=== PATIENT | male | born 1995 | race Caucasian/White ===

== ENCOUNTER 2017-12-25 15:49 | Emergency (ER) | payer BC ==
--- NOTE | 2017-12-25 16:13 | EDM.PDOC ---
ED HPI GENERAL MEDICAL PROBLEM - General Chief Complaint: General Time Seen by Provider: 12/25/17 15:50 Source of Information: Reports: Patient History Limitations: Reports: No Limitations - History of Present Illness INITIAL COMMENTS - FREE TEXT/NARRATIVE: Pt. states that he got the sherrell of a treble hook stuck in his R thumb. He states that his tetanus is UTD. Denies any other injury. Location: Reports: Upper Extremity, Right Right 1-Thumb Pain Score (Numeric/FACES): 6 - Related Data Allergies Allergy/AdvReac Type Severity Reaction Status Date / Time No Known Allergies Allergy Verified 12/25/17 16:01 Past Medical History - Past Health History Medical/Surgical History: Denies Medical/Surgical History Social & Family History - Tobacco Use Smoking Status *Q: Never Smoker - Recreational Drug Use Recreational Drug Use: No ED ROS GENERAL - Review of Systems Review Of Systems: ROS reveals no pertinent complaints other than HPI. ED EXAM, GENERAL - Physical Exam Exam: See Below Extremities: Other (barbed treble fish hook is in his R distal portion of his thumb. CMS intact.) ED GENERAL MEDICAL PROCEDURES - Additional/Other Procedure(s) Other (Free Text) Procedure(s): 1% lidocaine was injected into area of hook. The hook was easily removed by pulling it directly back with Fiorella forceps. The pt. then soaked his thumb in saline with chlorhexidine for a time after it was removed. Course - Vital Signs Last Recorded V/S: Last Vital Signs Temp 37.3 C 12/25/17 15:50 Pulse 80 12/25/17 15:50 Resp 16 12/25/17 15:50 BP 119/74 12/25/17 15:50 Pulse Ox - Orders/Labs/Meds Meds: Medications Discontinued Medications Generic Name Dose Route Start Last Admin Trade Name Roberta PRN Reason Stop Dose Admin Lidocaine HCl 5 ml 12/25/17 16:01 12/25/17 16:07 Xylocaine-Mpf 1% INJECT 12/25/17 16:02 5 ml ONETIME ONE Administration Departure - Departure Time of Disposition: 16:30 Disposition: Home, Self-Care 01 Clinical Impression: Fish hook injury of right thumb - Discharge Information Referrals: PCP,None [Primary Care Provider] - Forms: ED Department Discharge Additional Instructions: Keep open to the air as much as possible. Return to ER if you have any redness, swelling, or discharge from the area.
== END 2017-12-25 16:40 | disposition home or self-care (01) ==
LOC: VM.ED 15:49
DX: S60.351A Superficial foreign body of right thumb, initial encounter (principal); W45.8XXA Other foreign body or object entering through skin, initial encounter
CPT/HCPCS: 99283